=== PATIENT | female | born 1990 | race Caucasian/White ===

== ENCOUNTER 2016-08-21 13:48 | Emergency (ER) | payer SELFPAY ==
[~2016-08-21] VITALS: Ht 160 cm; Wt 60.0 kg
[2016-08-21 13:49] VITALS: BP 106/70
== END 2016-08-21 14:23 | disposition home or self-care (01) ==
LOC: ED 14:15
DX: J02.0 Streptococcal pharyngitis (principal)
CPT/HCPCS: 99283